=== PATIENT | male | born 1995 | race Caucasian/White ===

== ENCOUNTER → 2018-07-05 14:19 | Outpatient (CLI) | payer OTHER, SELFPAY ==
[2014-05-10 17:20] VITALS: BMI 25.8
--- OUTSIDE RECORDS SUMMARY | 2018-09-09 09:27 | XMS RPT_ITS ---
:1995 Author Organization [facility] Care Team Providers Name Role Phone Diomedes, Stephen Chi Attending Unavailable Diomedes, Stephen Chi Referring Unavailable Diomedes, Stephen Chi Primary Care Unavailable PROBLEMS PROBLEMS DATE TYPE CONDITION / CODE ATTENDING STATUS SOURCE 07/05/2018 Unknown R50.9 - Fever, Diomedes, Stephen Chi Active [facility] unspecified / Community R50.9(ICD-10) Hospital Repository PROCEDURES PROCEDURES No Procedure Records FoundRESULTS RESULTS Observed: 07/05/2018 Status: F Source: [facility] RESPIRATORY PANEL 2:12 PM [facility]IT[facility] RP PANEL ADENOVIRUS Not Detected HUMAN METAPHNEUMO Not Detected INFLUENZA A Not Detected INFLUENZA A (SUBTYPE H1) Not Detected INFLUENZA A (SUBTYPE H3) Not Detected INFLUENZA B Not Detected PARAINFLUENZA 1 Not Detected PARAINFLUENZA 2 Not Detected PARAINFLUENZA 3 Not Detected PARAINFLUENZA 4 Not Detected RHINOVIRUS Not Detected RSV A Not Detected RSV B Not Detected NAAT METHOD Testing was performed using nucleic acid amplification Performed By: #### [id number] #### [facility] [address] [place], [place], [address] ALLERGIES ALLERGIES DATE TYPE / CODE NAME / CODE REACTION SEVERITY SOURCE 05/10/2014 Miscellaneous MUSHROOM Hives Unknown [place] Allergy/[id number](S [facility]) Hospital Repository ENCOUNTERS ENCOUNTERS ADMIT/DISCHARGE ACCOUNT ADMITTING ENCOUNTER LOCATION SOURCE NUMBER CLASS 07/05/2018 [id number] Ambulatory [address] ing:PSN Repository PAYERS PAYERS ENCOUNTER GUARANTOR PAYER SUBSCRIBER SOURCE 07/05/2018 ZAHIRA [id number] Primary Insurance:[facility] ZAHIRA CLOUDOB: [facility]z [facility] [id number] [facility] [address]Gtf: [phone] Number: Repository [phone] () [id number] Date:[id number] [address], [place] [address]XY: CHECK WEBSITE 07/05/2018 Secondary NOT GIVENUNK [place] Insurance:SELF PAY [facility] Number: Effective Repository Date:2018-07-05
== END ==
PROVIDERS: Family Provider Family Medicine Geriatric Medicine; PCP Family Medicine Geriatric Medicine; Referring Provider Family Medicine Geriatric Medicine; Visit Provider Family Medicine Geriatric Medicine
DX: R50.9 Fever, unspecified (principal)
CPT/HCPCS: 87633

== ENCOUNTER 2018-11-04 13:04 | Emergency (ER) | payer OTHER, SELFPAY ==
[2018-11-04 13:05] VITALS: BP 134/79; PULSE 100; RESP 18; TEMP 36.3; O2SAT 97; BMI 30.2
--- NOTE | 2018-11-04 13:48 | ED.VIS.GI ---
History of Present Illness Chief Complaint: Nausea/Vomiting Informant: Patient - Abdominal Pain/Flank Pain Onset: Yesterday Context: Gradual Onset Timing: Intermittent Worsened by: Food Relieved by: Nothing - Nausea/Vomiting/Emesis GI Symptom: Nausea, Vomiting Quality: Nonbilious. Negative for: Blood streaks, Coffee ground, Hematemesis Severity: Moderate - Diarrhea/Melena/Hematochezia GI Symptom: Negative for: Diarrhea, Melena, Hematochezia Narrative: Patient works here in the hospital. Started vomiting yesterday, continued into today, states he vomits immediately whenever he tries to eat or drink anything. No abdominal pain, known fevers, or diarrhea. No known sick contacts. No recent antibiotics for any reason. No recent travel. No ingestion of any suspicious foods or uncooked/undercooked meats. Healthy otherwise. Past Medical History - Allergies and Home Meds Allergies/Adverse Reactions: Allergies MUSHROOM Allergy (Uncoded 11/04/18 13:04) Hives Primary Care Physician: Stephen Hercules Chi, MD [Primary Care Provider] - Past Medical History: None Smoking Status: Unknown if ever smoked Drugs: None Review of Systems General: Reports: Malaise. Denies: Chills, Fever Cardiovascular: Denies: Chest pain, Palpitations Respiratory: Denies: Dyspnea, Cough Gastrointestinal: Reports: Nausea, Vomiting. Denies: Abdominal pain, Diarrhea Genitourinary: Denies: Dysuria, Hematuria, Frequency Musculoskeletal: Denies: Back pain, Swelling, Extremity Pain Skin: Denies: Abscess, Wounds Neurological: Denies: Headache, Weakness, Numbness Physical Exam Vital Signs/Narrative: Vital Signs Temp Pulse Resp BP Pulse Ox 11/04/18 13:05 97.4 F L 100 18 134/79 H 97 Inital Vital Signs reviewed: Yes General: Well nourished, Well developed, No Acute Distress Head: Normocephalic, Atraumatic Eyes: Perrl, EOMI ENT: Moist mucous membranes, No rhinorrhea Neck: Supple, Nontender Cardiovascular: Regular rate, Regular rhythm, No murmurs Respiratory: No distress, CTA bilaterally, Chest nontender Abdomen: Soft, Nontender, Nondistended, Normal bowel sounds Extremities: Nontender, No edema Skin: Normal color, No rash Neurological: Alert, Oriented x3, Cranial nerves II-XII grossly intact, Normal Strength, Normal Sensation Psychological: Normal affect, Normal Mood Diagnostic/Tx/Re-eval - Medical Decision Making Given his benign exam and symptoms, I suspect this is viral gastritis 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 I do not think any testing is indicated at this time. He is not jaundiced. He was given a liter of fluid and Zofran IV, he had some improvement but still felt nauseated, but was able to keep down half of a can of lemon scammon [place] soda. He feels comfortable going home, I wrote him off of work and gave him a dose of Phenergan prior to discharge with his , as well as a prescription for Phenergan. ED Disposition - Plan for ED Patient: Disposition: Home or Assisted Living Diagnosis: Gastritis Instructions: ED Nausea Vomiting, ED Food Poison Or Gastroenteritis Prescriptions: proMETHazine tablet [Phenergan tablet] 25 mg PO Q4H PRN PRN #15 tab PRN Reason: Nausea Ranitidine HCl [Acid M60A2 Armor Crewman] 150 mg PO BID #14 tab Referrals: Stephen Hercules Chi, MD [Primary Care Provider] - 1-2 Days if not improving
[2018-11-04] MEDS: 0.9% Normal Saline 1,000 ML 999 ML IV (14:08)
[2018-11-04] MEDS: Ondansetron 4 MG/2 ML Vial IV (14:08)
[2018-11-04] MEDS: proMETHazine 25 MG/ML Syringe 12.5 MG IV (15:59)
[2018-11-04 16:22] VITALS: BP 134/73; PULSE 64; RESP 15
== END 2018-11-04 16:24 | disposition home or self-care (01) ==
PROVIDERS: Emergency Provider Emergency Medicine; Family Provider Family Medicine Geriatric Medicine; PCP Family Medicine Geriatric Medicine
DX: K29.70 Gastritis, unspecified, without bleeding (principal)
CPT/HCPCS: 96361; 96374; 96375; 99283; J7030; A4216; J2405

== ENCOUNTER → 2019-09-17 13:21 | Outpatient (CLI) | payer OTHER, SELFPAY | PROVIDERS: PCP Family Medicine Geriatric Medicine; Referring Provider Family Medicine Geriatric Medicine; Visit Provider Family Medicine Geriatric Medicine | DX: R68.83 Chills (without fever) (principal) | CPT/HCPCS: 87633 ==

== ENCOUNTER 2023-03-29 04:03 | Emergency (ER) | payer OTHER, SELFPAY ==
[2023-03-29 04:06] VITALS: BP 126/82; PULSE 72; RESP 16; TEMP 36.2; O2SAT 98; BMI 33.0
--- NOTE | 2023-03-29 04:14 | RAD_ITS ---
INDICATION: Pain EXAMINATION/TECHNIQUE: X-RAY - XR Spine Cervical 2 or 3 Views COMPARISON: FINDINGS: Vertebral bodies are normal height. No definite fracture demonstrated. No subluxation. C1-2 alignment is maintained. Straightening of the normal curvature. Prevertebral soft tissues are unremarkable. RAD/Cerv Spine 2 or 3 Views IMPRESSION: No evidence of fracture or subluxation. Straightening of the normal curve may be due to positioning or muscle spasm. Electronically Signed: Hannah Brown MD at 5:02 EDT ,
--- NOTE | 2023-03-29 04:14 | EX.ED.DYSGE1 ---
HPI History of Present Illness Chief Complaint: Other, Pain/Inj Narrative Narrative: 27-year-old male who denies significant past medical history presents with neck pain that he has had for the last 14 hours. He states it started yesterday afternoon. More in the middle of his neck, where his skull base is. He denies any fevers or chills, no nausea or vomiting, sometimes is worse with movement. He gets sharp stabbing pain at times in between dull and achy pain, that radiates up towards his head. Not necessarily one-sided however. His gave him one of her painkillers to help because it was hurting him badly. He does have past medical history of migraine headaches as well. [facility] Medical History Migraine Home Medications cyclobenzaprine 10 mg tablet 10 mg PO TID PRN Muscle Spasm #20 TABLETS 03/29/23 [Rx Last Taken Unknown] naproxen 500 mg tablet 500 mg PO BID PRN #20 tabs 03/29/23 [Rx Last Taken Unknown] Allergy/AdvReac Type Severity Reaction Status Date / Time mushroom Allergy Hives Verified 03/29/23 04:04 Surgical History History of tonsillectomy Social History Smoking Status: Unknown if ever smoked ROS ROS ED ROS Narrative Constitutional: No fever, no chills. HEENT: No sore throat. Positive midline neck pain. Positive scalp pain. No loss of vision. No rhinorrhea. Cardiovascular: No chest pain. No palpitations. No pedal edema. Respiratory: No cough, no shortness of breath. Abdominal: No abdominal pain. No nausea. No vomiting. Genitourinary: No dysuria. No hematuria. Musculoskeletal: No myalgias. No arthralgias. Neurologic: No headaches. No dizziness. No lightheadedness. Skin: No rash. No change in color. Psychiatric: No depression. No anxiety. EXAM Physical Exam Narrative Exam Narrative: Afebrile. Vital signs noted. HEENT: Normocephalic. Atraumatic. PERRL, EOMI. Neck soft and supple. No point tenderness or step off. Full range of motion of neck. Cardiovascular: Regular rate and rhythm. No murmurs, rubs, or gallops appreciated. Respiratory: No tachypnea. Lungs clear to auscultation bilaterally. Gastrointestinal: Abdomen soft, nontender, with normoactive bowel sounds. No rebound or guarding. Neurological: Awake. Alert. Nonfocal, nonlateralizing. Skin: No rash. Normal color. No pallor. Musculoskeletal: No pedal edema. Full range of motion extremities. Const Vital Signs: 03/29/23 04:06 03/29/23 04:08 Temperature 97.2 F L Temperature Source Temporal Pulse Rate 72 Respiratory Rate 16 Respiratory Effort Normal Respiratory Pattern Normal Blood Pressure 126/82 H Blood Pressure Mean 96 Pulse Ox 98 Oxygen Delivery Method Room Air MDM MDM MDM Narrative Medical decision making narrative: In the differential diagnosis is atypical migraine versus cervical strain versus bilateral occipital neuralgia. He is showing no other signs of an acute process, no neurological deficits. He is able to raise his arms above his head without difficulty. I am not concerned for spinal cord compression. I do feel that although he has had no trauma that x-rays are indicated to look at the alignment. He could have muscle spasms as well. He was given Toradol and Norflex intramuscular injections. X-rays of the cervical spine and 3 views interpreted by myself independently show loss of lordosis but no acute fracture. I reviewed the radiology report. It confirms my individual interpretation that there is no fracture. Also comments on straightening of the normal curvature which may be due to positioning or muscle spasm. After intramuscular injections, patient states he feels improved. I do feel that he may be having more of a cervical spasm. At this point in time, I feel he can be discharged safely home with follow-up. He was written prescriptions for Flexeril and naproxen. He will follow-up with his primary care provider. I do not feel he requires observation at this time. Disposition is discharged home in stable condition. History & Record Review Discussion w/independent historian: Patient Additional record(s) reviewed:: Prior ED visit Radiography Diagnostic Testing: Clinical Impression(s) from Imaging Studies Cervical Spine X-Ray 03/29/23 04:14 IMPRESSION: No evidence of fracture or subluxation. Straightening of the normal curve may be due to positioning or muscle spasm. Electronically Signed: Hannah Brown MD at 5:02 EDT , Discharge Plan Triage Chief Complaint: Other, Pain/Inj ED Provider: Kaushal Finney Dx/Rx/DC Orders Clinical Impression: Cervical paraspinal muscle spasm, Neck pain Instructions: ED Neck Pain, ED Neck Spasm, No Trauma Prescriptions: New cyclobenzaprine 10 mg tablet 10 mg PO TID PRN (Reason: Muscle Spasm) Qty: 20 0RF naproxen 500 mg tablet 500 mg PO BID PRN Qty: 20 0RF Primary Care Provider: Stephen Hercules Chi Referrals: Stephen Hercules Chi, MD [Primary Care Provider] - 3-5 Days if not improving Disposition Disposition: Home, Self Care
[2023-03-29] MEDS: Ketorolac 60 MG/2 ML Vial IM (04:40)
[2023-03-29] MEDS: Orphenadrine 60 MG/2 ML Ampul IM (04:40)
[2023-03-29 05:27] VITALS: BP 134/68; PULSE 78; RESP 18; O2SAT 98
== END 2023-03-29 05:28 | disposition home or self-care (01) ==
PROVIDERS: Emergency Provider Emergency Medicine; PCP Family Medicine Geriatric Medicine; Visit Provider Emergency Medicine
DX: M54.2 Cervicalgia (principal); M62.830 Muscle spasm of back
CPT/HCPCS: 72040; 96372; 99282

== ENCOUNTER → 2024-03-13 | Outpatient (CLI) | payer OTHER, SELFPAY ==
[2024-03-13 16:51] LABS: Absolute Lymphocyte Count 3.02 X10^3/uL (0.83-4.51); Absolute Neutrophil Count 5.6 X10^3/uL (2.0-7.7); Eosinophil# 0.42 X10^3/uL; Eosinophils% 4.3 % (0-5); Hematocrit 47.9 % (40-54); Hemoglobin 16.4 g/dL (13.0-16.5); Lymphocyte # 3.02 X10^3/ul (0.83-4.51); Lymphocyte % 30.7 % (19-41); Mean Corp Hgb Conc 34.2 g/dL (32-36); Mean Corpuscular Volume 84.6 fL (80-94); Monocyte# 0.62 X10^3/uL; Monocyte% 6.3 % (0-10); NRBC Flagged by Analyzer 0 % (0-5); Neutrophil # 5.62 X10^3/uL (2.7-7.7); Platelet Count 276 K/mm3 (150-450); RBC Distribution Width CV 12.4 % (11.6-14.6); RBC Distribution Width SD 37.5 fl (35.1-43.9); Red Blood Count 5.66 M/mm3 (4.6-6.2); White Blood Count 9.9 K/mm3 (4.4-11.0)
[2024-03-13 17:38] LABS: ALB/GLOB Ratio 1.1 RATIO (0.9-2.4); AST(SGOT) 61 U/L (15-37); Alanine Aminotransfer ALT/SGPT 143 U/L (16-61); Albumin, Serum 4.2 g/dL (3.2-5.0); Alkaline Phosphatase 137 U/L (45-117); Anion Gap 5 (5-15); BUN 14 mg/dL (7-18); Calcium,Total 9.7 mg/dL (8.5-10.1); Chloride 107 mmol/L (98-107); Cholesterol 237 mg/dL (200); EST Glomerular Filtration Rate 94 mL/min (>60); Est Glom Filt Rate - Afr Amer 114 mL/min (>60); Globulin 3.9 g/dL (2.2-4.2); Glucose 86 mg/dL (74-106); High Density Lipoprotein 33 mg/dL; Potassium 3.8 mmol/L (3.5-5.1); Protein, Total 8.1 g/dL (6.4-8.2); Sodium Level 140 mmol/L (136-145); Triglycerides 438 mg/dL
[2024-03-13 17:56] LABS: Hepatitis C Antibody Non-Reactive (Nonreactive)
== END | disposition home or self-care (01) ==
LOC: POLAB3 16:11
PROVIDERS: PCP Family Medicine Geriatric Medicine; Visit Provider Family Medicine Geriatric Medicine
DX: E78.5 Hyperlipidemia, unspecified (principal); I10 Essential (primary) hypertension; G43.909 Migraine, unspecified, not intractable, without status migrainosus; Z13.89 Encounter for screening for other disorder
CPT/HCPCS: 36415; 80053; 80061; 84443; 85025; 86803

== ENCOUNTER → 2024-03-27 | Outpatient (CLI) | payer OTHER, SELFPAY ==
--- NOTE | 2024-03-27 07:17 | US_ITS ---
STUDY: ABDOMINAL ULTRASOUND - RIGHT UPPER QUADRANT REASON FOR VISIT: Male, 28 years old ALVEATED LIVER ENZYMES TECHNIQUE: Ultrasound evaluation of the right upper quadrant was performed with real-time and static vora-scale imaging. TECHNICAL QUALITY: Adequate. COMPARISON: None. FINDINGS: Liver: The liver is enlarged and measures 19.5 cm. There is increased echogenicity consistent with fatty infiltration. The bile ducts are within normal limits. There is hepatic color flow. The direction of portal flow is hepatopetal. There is no demonstrated mass lesion. Gallbladder: Normal distended gallbladder. The gallbladder wall measures 2.5 mm. There is a negative sonographic Macias''s sign. There is no pericholecystic fluid. There are no gallstones. Common Bile Duct (C.B.D.): The common bile duct measures 5.4 mm. Pancreas: Normal size of the head, body and tail of the pancreas. There is normal echogenicity of the pancreas. There is no demonstrated pancreatic mass or cyst. Right Kidney: Normal size of the right kidney. The right kidney measures 12.1 cm x 6 cm x 5.2 cm. Normal renal cortex. The right cortex measures 1.7 cm. There is no demonstrated renal mass or cyst. There is no right hydronephrosis. US/Abdomen Limited IMPRESSION: Hepatomegaly and fatty infiltration of the liver. Electronically Signed: Juan Carlos Lamar MD at 13:40 EDT ,
== END | disposition home or self-care (01) ==
LOC: US 07:15
PROVIDERS: PCP Family Medicine Geriatric Medicine; Referring Provider Family Medicine Geriatric Medicine; Visit Provider Family Medicine Geriatric Medicine
DX: R74.8 Abnormal levels of other serum enzymes (principal)
CPT/HCPCS: 76705

== ENCOUNTER 2025-06-16 20:48 | Emergency (ER) | payer OTHER, SELFPAY ==
[2025-06-16 20:49] VITALS: BP 165/130; PULSE 82; RESP 18; TEMP 35.8; O2SAT 96; BMI 34.7
--- NOTE | 2025-06-16 21:48 | EDS_ITS ---
HPI History of Present Illness Chief Complaint: Flank Pain [facility] Medical History Migraine Home Medications ?Medication ?Instructions ?Recorded ?Last Taken ?Type NK 06/16/25 Unknown History Allergy/AdvReac Type Severity Reaction Status Date / Time mushroom Allergy Hives Verified 06/16/25 20:48 Surgical History History of tonsillectomy Social History Smoking Status: Unknown if ever smoked EXAM Physical Exam Const Vital Signs: 06/16/25 20:49 06/16/25 22:48 Temperature 96.4 F L Temperature Source Temporal Pulse Rate 82 89 Respiratory Rate 18 17 Blood Pressure 165/130 H 158/100 H Blood Pressure Mean 141 119 Pulse Ox 96 99 Oxygen Delivery Method Room Air Room Air MDM MDM MDM Narrative Medical decision making narrative: HISTORY OF PRESENT ILLNESS: Chief complaint: Flank pain 29-year-old male with no significant past medical history. Complains of sudden onset of back/flank plain around 5 PM. He further state there is no falls. No family or personal history of connective tissue diseases. No history of kidney stones. No vomiting. No fever. No difficulty urinating noted REVIEW OF SYSTEMS: Pertinent positives: Back/flank pain Pertinent negatives: As per HPI PHYSICAL EXAM: Nursing triage notes reviewed, Vital signs reviewed Constitutional: please see mdm HENT: MMM Eyes: Pupils equal round and reactive to light, Extraocular muscles intact Neck: No stridor, no JVD, full neck ROM Lungs: Clear to auscultation, No wheezing or rales. No increased work of breathing, no conversational dyspnea, no accessory muscle use, no nasal flaring. No respiratory distress noted Heart: Regular rate and rhythm, No murmurs, No rubs and No gallops, 2+ distal pulses (radial, femoral, posterior tibial) in all extremities Abdomen: Soft, there is no tenderness, rigidity, rebound or guarding, no obvious peritoneal signs, no palpable pulsatile abdominal masses, no auscultated abdominal bruit : No CVAT Extremities: No edema Neuro: No new focal neurological deficits, cranial nerves II through XII intact, 5/5 strength in all present extremities. Intact sensation to light touch in all present extremities, 2+ reflexes bilateral patella tendons. Skin: No rash or lesions noted MEDICAL DECISION MAKING: Chief Complaint: please see HPI External records reviewed: Reviewed prior imaging studies Factors affecting care: none Social determinants of health: none History obtained from others: none Consults: none [facility] [place] Narrative: Patient was initially hemodynamically stable, afebrile and nontoxic-appearing. Exam with left CVA tenderness. I considered the following differential diagnosis: Nephrolithiasis, pyelonephritis, AAA, musculoskeletal injury I obtained broad lab and imaging to further determine if the patient was suffering from a life-threatening etiology. Initially assessed the patient with IV fluids, Toradol, Zofran and morphine. ALL IMAGES (IF OBTAINED) HAVE BEEN PERSONALLY REVIEWED AND INTERPRETED BY MYSELF. CBC with leukocytosis suggestive of systemic inflammation, no anemia or thrombocytopenia BMP without evidence of significant electrolyte abnormalities, no anion gap, no acute kidney injury. LFTs at baseline liver enzyme abnormalities, no new liver enzyme abnormalities noted CT scan of the abdomen and pelvis was read reviewed personally myself showed a small nephrolithiasis. Radiologist agreed my interpretation noted 3 mm stone in the proximal left ureter. With mild hydronephrosis. No report of vascular abnormality on the CT scan Urinalysis without evidence of infection The synthesis of the patient's history, physical exam, labs images suggest likely nephrolithiasis causing the patient's presentation. The stone is of the size to pass spontaneously. Will provide oral narcotics, nausea medicine and encourage patient to drink copious oral fluids. Strict return precautions will be discussed. The patient and/or family, caregivers express understanding. The patient and/or family, caregivers agrees with the plan. Shared decision making: I will have a discussion with the patient and or visitors regarding risk/benefits of further testing or admission. They will be made aware of of the risk/benefits inherent in this decision they will be given the opportunity to voice understanding. Total critical care time today provided was at least 0 minutes. This excludes separately billable procedures. Critical care time (if documented) is secondary to the patient having high probability of clinically significant/life threatening deterioration in the patient's condition which required my urgent intervention. Impression: 1. Acute flank pain 2. Nephrolithiasis 3. Hydronephrosis Dispo: Discharge home This note was generated with [employer] dictation software. It may contain incorrect words, spelling, and punctuation that were not noted in review of the chart p rior to signing. Lab Data Labs: Laboratory Results - last 24 hr 06/16/25 06/16/25 21:30 23:09 WBC 12.4 H RBC 5.25 Hgb 15.7 Hct 43.8 MCV 83.4 MCH 29.9 MCHC 35.8 RDW Std Deviation 38.3 RDW Coeff of Arnulfo 12.7 Plt Count 249 MPV 9.8 Immature Gran % (Auto) 0.600 Neut % (Auto) 58.4 Lymph % (Auto) 29.5 [place] % (Auto) 7.1 Eos % (Auto) 3.6 Baso % (Auto) 0.8 Absolute Neuts (auto) 7.3 Absolute Lymphs (auto) 3.67 Nucleated RBC % 0 Sodium 143 Potassium 3.6 Chloride 106 Carbon Dioxide 25.2 Anion Gap 12 BUN 16 Creatinine 1.06 Estim Creat Clear Calc 119.85 Est GFR (MDRD) Non-Af 97 BUN/Creatinine Ratio 14.7 Glucose 131 H Calcium 9.8 Total Bilirubin 0.36 AST 58 H ALT 169 H Alkaline Phosphatase 109 Total Protein 7.2 Albumin 4.5 Globulin 2.7 Albumin/Globulin Ratio 1.7 Urine Color Yellow Urine Clarity Clear Urine pH 7.0 Ur Specific [place] 1.015 Urine Protein 30 H Urine Glucose (UA) Normal Urine Ketones Negative Urine Occult Blood 250 H Urine Nitrite Negative Urine Bilirubin Negative Urine Urobilinogen Normal Ur Leukocyte Esterase Negative Urine RBC 50-100 SEEN Urine WBC 0-5 SEEN Ur Squamous Epith Cells 0-5 SEEN Urine Bacteria RARE Urine Mucus RARE Radiography Diagnostic Testing: Clinical Impression(s) from Imaging Studies Abdomen/Pelvis CT 06/16/25 22:20 IMPRESSION: Punctate caliceal stone in the upper pole of the left kidney and a 3 mm stone in the proximal left ureter with mild left-sided hydronephrosis. Punctate nonobstructing caliceal stone in the midpole of the right kidney. Reading Location: [id number] Discharge Plan Triage Chief Complaint: Flank Pain Other Complaint: Back ED Provider: Jose R Humphreys Dx/Rx/DC Orders Prescriptions: No Action NK Primary Care Provider: Stephen Hercules Chi Referrals: Stephen Hercules Chi, MD [Primary Care Provider, Geriatrics] Print Language: Bol[place]ian
--- OUTSIDE RECORDS SUMMARY | 2025-06-16 22:00 | XMS RPT_ITS | CCD ---
Author Organization [facility] Care Team Providers [employer] Name Role Phone Assessment, Health Risk Referring Unavaila ble Assessment, Health Risk Attending Unavaila ble Diomedes, Stephen Chi Primary Care Unavailable Allergies Allergy Classification Reported Allergen(s) Allergy Type Date of Onset Reaction(s) Facility (1 source) Mushroom (edible) Drug allergy (disorder) 03-29-2023 [facility] Rep[facility] Results Test Name Value Interpretation Reference Range Facil ity CBC, Employeeon 04-11-2025 Absolute Lymph 3.28 X10 3/uL Normal 0.83-4.51 [facility] Comment on above: Performed By: #### L 400.0100, L100.0200, L500.2900 #### [facility] [address] [place], [address] Absolute Neut 4.3 X10 3/uL Normal 2.0-7.7 [facility] Comment on above: Performed By: #### L 400.0100, L100.0200, L500.2900 #### [facility] [address] [place], [address] Basophils/100 WBC (Bld) 0.9 % Normal 0-1 [facility] Comment on above: Performed By: #### L 400.0100, L100.0200, L500.2900 #### [facility] [address] [place], [address] Eosinophils/100 WBC (Bld) 4.8 % Normal 0-5 [facility] Comment on above: Performed By: #### L 400.0100, L100.0200, L500.2900 #### [facility] [address] [place], [address] Erythrocyte distribution width (RBC) [Ratio] 12.3 % Normal 11.6-14.6 [facility] Comment on above: Performed By: #### L 400.0100, L100.0200, L500.2900 #### [facility] [address] [place], [address] Hematocrit (Bld) [Volume fraction] 43.0 % Normal 40-54 [facility] Comment on above: Performed By: #### L 400.0100, L100.0200, L500.2900 #### [facility] [address] [place], [address] Hemoglobin (Bld) [Mass/Vol] 15.5 g/dL Normal 13.0-16.5 [facility] Comment on above: Performed By: #### L 400.0100, L100.0200, L500.2900 #### [facility] [address] [place], [address] Lymphocytes/100 WBC (Bld) 37.6 % Normal 19-41 [facility] Comment on above: Performed By: #### L 400.0100, L100.0200, L500.2900 #### [facility] [address] [place], [address] MCH (RBC) [Entitic mass] 30.1 pg Normal 27.0-32.0 [facility] Comment on above: Performed By: #### L 400.0100, L100.0200, L500.2900 #### [facility] [address] [place], [address] MCHC (RBC) [Mass/Vol] 36.0 g/dL Normal 32-36 [facility] Comment on above: Performed By: #### L 400.0100, L100.0200, L500.2900 #### [facility] [address] [place], [address] MCV (RBC) [Entitic vol] 83.5 fL Normal 80-94 [facility] Comment on above: Performed By: #### L 400.0100, L100.0200, L500.2900 #### [facility] [address] [place], [address] Monocytes/100 WBC (Bld) 6.8 % Normal 0-10 [facility] Comment on above: Performed By: #### L 400.0100, L100.0200, L500.2900 #### [facility] [address] [place], [address] Neutrophils/100 WBC (Bld) 49.3 % Normal 47-70 [facility] Comment on above: Performed By: #### L 400.0100, L100.0200, L500.2900 #### [facility] [address] [place], [address] NRBC # 0.00 10 3/uL Normal 0-5 [facility] Comment on above: Performed By: #### L 400.0100, L100.0200, L500.2900 #### [facility] [address] [place], [address] Nucleated RBC (Bld) [#/Vol] 0 10*3/uL Normal 0-5 [facility] Comment on above: Performed By: #### L 400.0100, L100.0200, L500.2900 #### [facility] [address] [place], [address] Platelet mean volume (Bld) [Entitic vol] 10.2 fL Normal 6.2-12.0 [facility] Comment on above: Performed By: #### L 400.0100, L100.0200, L500.2900 #### [facility] [address] [place], [address] Platelets (Bld) [#/Vol] 236 10*3/uL Normal 150-450 [facility] Comment on above: Performed By: #### L 400.0100, L100.0200, L500.2900 #### [facility] [address] [place], [address] RBC (Bld) [#/Vol] 5.15 10*6/uL Normal 4.6-6.2 [facility] Comment on above: Performed By: #### L 400.0100, L100.0200, L500.2900 #### [facility] [address] [place], [address] RDW SD 37.2 fl Normal 35.1-43.9 [facility] Comment on above: Performed By: #### L 400.0100, L100.0200, L500.2900 #### [facility] [address] [place], [address] WBC (Bld) [#/Vol] 8.7 10*3/uL Normal 4.4-11.0 [facility] Comment on above: Performed By: #### L 400.0100, L100.0200, L500.2900 #### [facility] [address] [place], [address] Employee [employer] 5 CHOL:HDL 7.13 Normal [facility] Comment on above: Performed By: #### L 400.0100, L100.0200, L500.2900 #### [facility] [address] [place], [address] Cholesterol [Mass/Vol] 219 mg/dL High <=200 [facility] Comment on above: Result Comment: Chol esterol level, Desirable <200 mg/dL Borderline high cholesterol 200-239 mg/dL High cholesterol >=240 mg/dL Recommendations of the NCEP Adult Treatment Panel for the following risk-cutoff thresholds for the [place] population. Performed By: #### L 400.0100, L100.0200, L500.2900 #### [facility] [address] [place], [address] Cholesterol in HDL [Mass/Vol] 31 mg/dL Low [facility] Comment on above: Result Comment: Sera onal Cholesterol Education Program (NCEP) guidelines: <40 mg/dL: Low HDL-cholesterol (major risk factor for CHD) >= 60 mg/dL: High HDL-cholesterol (negative risk factor for CHD) HDL-cholesterol is affected by a number of factors, e.g. smoking, exercise, hormones, sex and age. Performed By: #### L 400.0100, L100.0200, L500.2900 #### [facility] [address] [place], [address] Cholesterol in LDL [Mass/Vol] 147 mg/dL Normal [facility] Comment on above: Result Comment: Bord zzsukf=550-921 mg/dL Higher Dvyo=344 mg/dL or greater Beth Equation 2020 for LDL-C Performed By: #### L 400.0100, L100.0200, L500.2900 #### [facility] [address] [place], [address] Cholesterol in VLDL [Mass/Vol] 45 mg/dL High 5-40 [facility] Comment on above: Performed By: #### L 400.0100, L100.0200, L500.2900 #### [facility] [address] [place], [address] Triglyceride [Mass/Vol] 224 mg/dL High [facility] Comment on above: Result Comment: The drugs N-Acetylcysteine and Metamizole may falsely depress this assay. Normal range: <150 mg/dL Borderline High: 150-199 mg/dL High: 200-499 mg/dL Very High: >500 mg/dL Performed By: #### L 400.0100, L100.0200, L500.2900 #### [facility] [address] [place], [address] URIC 8.3 mg/dL High 3.5-7.2 [facility] Comment on above: Result Comment: The drugs N-Acetylcysteine and Metamizole may falsely depress this assay. Performed By: #### L 400.0100, L100.0200, L500.2900 #### [facility] [address] [place], [address] Urinalysis, Employeeon 04-11 BILIRUBIN URINE Normal Negative [facility] Comment on above: Order Comment: Urine , Random Result Comment: NOT WANTED Performed By: #### L 400.0100, L100.0200, L500.2900 #### [facility] [address] [place], [address] Clarity (U) Normal Clear [facility] Comment on above: Order Comment: Urine , Random Result Comment: NOT WANTED Performed By: #### L 400.0100, L100.0200, L500.2900 #### [facility] [address] [place], [address] Color (U) Normal Yellow [facility] Comment on above: Order Comment: Urine , Random Result Comment: NOT WANTED Performed By: #### L 400.0100, L100.0200, L500.2900 #### [facility] [address] [place], [address] GLUCOSE, UR Normal Normal [facility] Comment on above: Order Comment: Urine , Random Result Comment: NOT WANTED Performed By: #### L 400.0100, L100.0200, L500.2900 #### [facility] [address] [place], [address] KETONE UR Normal Negative [facility] Comment on above: Order Comment: Urine , Random Result Comment: NOT WANTED Performed By: #### L 400.0100, L100.0200, L500.2900 #### [facility] [address] [place], [address] LEUK ESTERASE Normal Negative [facility] Comment on above: Order Comment: Urine , Random Result Comment: NOT WANTED Performed By: #### L 400.0100, L100.0200, L500.2900 #### [facility] [address] [place], [address] Nitrite Ql (U) Normal Negative [facility] Comment on above: Order Comment: Urine , Random Result Comment: NOT WANTED Performed By: #### L 400.0100, L100.0200, L500.2900 #### [facility] [address] [place], [address] OCCULT BLOOD-UR Normal Negative [facility] Comment on above: Order Comment: Urine , Random Result Comment: NOT WANTED Performed By: #### L 400.0100, L100.0200, L500.2900 #### [facility] [address] [place], [address] pH UR Normal 5.0 - 8.0 [facility] Comment on above: Order Comment: Urine , Random Result Comment: NOT WANTED Performed By: #### L 400.0100, L100.0200, L500.2900 #### [facility] [address] [place], [address] PROT DIPSTX Normal Negative [facility] Comment on above: Order Comment: Urine , Random Result Comment: NOT WANTED Performed By: #### L 400.0100, L100.0200, L500.2900 #### [facility] [address] [place], [address] SP.GR. DIPSTX Normal 1.002-1.030 [facility] Comment on above: Order Comment: Urine , Random Result Comment: NOT WANTED Performed By: #### L 400.0100, L100.0200, L500.2900 #### [facility] [address] [place], [address] UR Preservative Normal [facility] Comment on above: Order Comment: Urine , Random Result Comment: NOT WANTED Performed By: #### L 400.0100, L100.0200, L500.2900 #### [facility] [address] [place], [address] UROBILI Normal Normal [facility] Comment on above: Order Comment: Urine , Random Result Comment: NOT WANTED Performed By: #### L 400.0100, L100.0200, L500.2900 #### [facility] [address] [place], [address] Encounters Encounter Date Encounter Type Care Provider Facility Start: 04-11-2025 ambulatory Health Risk Assessment Facility:[facility] Payers Date Payer Category Payer Self-pay Unknown [id number] Summary Purpose Family History No Family History Records Found Advance Directives No Advanced Directives Records Found Additional Source Comments (unrecognized sect ion and content) No Status Records Found INFORMATION SOURCE (unrecogn ized section and content) DATE CREATED AUTHOR 04/13/2025 [facility] FOR RECORDS PERTAINING TO PATIENTS WHO ARE OR HAVE BEEN ENROLLED IN A CHEMICAL DEPENDENCY/SUBSTANCEABUSE PROGRAM, SOME INFORMATION MAY BE OMITTED. This clinical summary was aggregated from multiple sources. Caution should be exercised in using it in the provision of clinical care. This summary normalizes information from multiple sources, and as a consequence, information in this document may materially change the coding, format and clinical context of patient data. In addition, data may be omitted in some cases. CLINICAL DECISIONS SHOULD BE BASED ON THE PRIMARY CLINICAL RECORDS. [employer] provides no warranty or guarantee of the accuracy or completeness of information in this document.
[2025-06-16 22:08] LABS: Hematocrit 43.8 % (40-54); Hemoglobin 15.7 g/dL (13.0-16.5); Immature Granulocytes Count 0.070 X10^3/uL (0.0-0.0); Mean Corp Hgb Conc 35.8 g/dL (32-36); Mean Corpuscular Volume 83.4 fL (80-94); Mean Platelet Vol. 9.8 fl (6.2-12.0); NRBC Flagged by Analyzer 0 % (0-5); Platelet Count 249 K/mm3 (150-450); RBC Distribution Width CV 12.7 % (11.6-14.6); RBC Distribution Width SD 38.3 fl (35.1-43.9); Red Blood Count 5.25 M/mm3 (4.6-6.2); White Blood Count 12.4 K/mm3 (4.4-11.0)
[2025-06-16 22:12] LABS: AST(SGOT) 58 U/L (<=37); Alanine Aminotransfer ALT/SGPT 169 U/L (<=46); Albumin, Serum 4.5 g/dL (3.5-5.0); Alkaline Phosphatase 109 U/L (40-129); Anion Gap 12 (7-18); BUN 16 mg/dL (4-19); BUN/Creat Ratio 14.7 RATIO (10-20); Calcium,Total 9.8 mg/dL (7.6-11.0); Carbon Dioxide 25.2 mmol/L (20.0-29.0); Chloride 106 mmol/L (96-106); Estimated Creatinine Clearance 119.85 ml/min (50-250); Globulin 2.7 g/dL (2.2-4.2); Glucose 131 mg/dL (70-99); Potassium 3.6 mmol/L (3.5-5.1)
[2025-06-16] MEDS: 0.9% Normal Saline (1000mL) 1,000 ML 999 ML IV (22:12)
--- NOTE | 2025-06-16 22:20 | CT_ITS ---
PROCEDURE: ABDOMEN/PELVIS WITHOUT CONT 06/16/2025 REASON FOR EXAM: LEFT-SIDED FLANK PAIN, RULE OUT NEPHROLITHIASIS TECHNIQUE: Procedure Code: CTABDPEL Modality: CT Procedure: ABDOMEN/PELVIS WITHOUT CONT Noncontrast technique limits evaluation of the abdominal and pelvic viscera. Coronal and Sagittal reconstruction series were provided. One or more dose reduction techniques were used (e.g., Automated exposure control, adjustment of the mA and/or kV according to patient size, use of iterative reconstruction technique). RADIATION DOSE SUMMARY: DLP: 1029.61 mGycm FINDINGS: The lung bases are unremarkable. The heart size is unremarkable. The liver is fatty. The liver contour is unremarkable. The gallbladder, pancreas, and spleen are unremarkable. Both adrenal glands are unremarkable. There is a punctate nonobstructing caliceal stone in the midpole of the right kidney. There is mild left-sided hydronephrosis. There is a punctate caliceal stone in the upper pole of the left kidney. There is a 3 mm stone in the proximal left ureter. The bladder is unremarkable. The prostate is unremarkable. There is no bowel obstruction. The appendix is unremarkable. There is no hiatal hernia. The vasculature is unremarkable. There is no ascites, pneumoperitoneum, or lymphadenopathy. The osseous structures are intact. CT/Abdomen/Pelvis without Cont IMPRESSION: Punctate caliceal stone in the upper pole of the left kidney and a 3 mm stone i n the proximal left ureter with mild left-sided hydronephrosis. Punctate nonobstructing caliceal stone in the midpole of the right kidney. Reading Location: [id number]
[2025-06-16 22:48] VITALS: BP 158/100; PULSE 89; RESP 17; O2SAT 99
[2025-06-16 23:16] LABS: Color, Urine Yellow (Yellow); Glucose, Dipstick Normal (Normal); Ketone-Dipstick Negative (Negative); Leukocyte Esterase-Dipstick Negative /ul (Negative); Nitrite-Dipstick Negative (Negative); Occult Blood-Urine 250 /ul (Negative); Protein-Dipstick 30 mg/dl (Negative); Specific Gravity, Urine 1.015 (1.002-1.030); Urine Bilirubin Dipstick Negative (Negative)
[2025-06-16 23:43] LABS: Mucous, Urine RARE /hpf (<or=2+); Red Blood Cells-Urine 50-100 SEEN /hpf (0-5); Squamous Epithelial Cells - UA 0-5 SEEN /hpf (0-5)
[2025-06-17] VITALS: BP 167/88; PULSE 78; RESP 18; O2SAT 97
[2025-06-17 00:09] VITALS: BP 167/88; PULSE 78; RESP 18; TEMP 36.8; O2SAT 97
== END 2025-06-17 00:19 | disposition home or self-care (01) ==
PROVIDERS: Emergency Provider Emergency Medicine; PCP Family Medicine Geriatric Medicine; Visit Provider Emergency Medicine
DX: N13.2 Hydronephrosis with renal and ureteral calculous obstruction (principal); R10.A0 Flank pain, unspecified side
CPT/HCPCS: 74176; 80053; 81001; 85025; 96361; 96374; 96375; 99284; A4216; J2405